=== PATIENT | male | born 1985 | race Caucasian/White ===

== ENCOUNTER 2018-03-15 15:53 | Emergency (ER) | payer MEDICAID ==
[2018-03-15 17:40] VITALS: BP 141/96
[2018-03-15] MEDS ORDERED: KETOROLAC TROMETH 60MG/2ML VIAL IM ONE (18:00)
== END 2018-03-15 18:14 | disposition home or self-care (01) ==
LOC: ER 15:59
DX: S92.402A Displaced unspecified fracture of left great toe, initial encounter for closed fracture (principal); S91.132A Puncture wound without foreign body of left great toe without damage to nail, initial encounter; F17.210 Nicotine dependence, cigarettes, uncomplicated; V98.8XXA Other specified transport accidents, initial encounter; Y93.89 Activity, other specified; Y92.89 Other specified places as the place of occurrence of the external cause; Y99.8 Other external cause status
CPT/HCPCS: 73630; 96372; 99284; J1885; L3260